=== PATIENT | female | born 1960 | race Caucasian/White ===

== ENCOUNTER → 2019-02-28 | Outpatient (CLI) | payer BC ==
--- NOTE | 2019-02-28 10:45 | Diagnostic Imaging Report ---
EXAMINATION: HAND 3+ VIEWS RIGHT INDICATION: Right hand pain COMPARISON: None FINDINGS: No acute fracture or dislocation. Alignment is anatomic. The soft tissues appear unremarkable. No substantial degenerative changes. IMPRESSION: No acute osseous injury. Signed by: Fern Lawton MD on 02/28/2019 10:42 AM
== END ==
LOC: RAD 09:16
PROVIDERS: ATTEND Internal Medicine
DX: M79.641 Pain in right hand (principal)

== ENCOUNTER → 2019-03-08 | Outpatient (CLI) | payer BC ==
--- NOTE | 2019-03-08 14:34 | Diagnostic Imaging Report ---
CT of the chest, without contrast, 03/08/2019. History: History of smoking and nodules. Comparison: None available. Technique: Multidetector CT scanning of the chest was performed from the level of the apices to the upper abdomen without contrast. Coronal and sagittal multiplanar reformations were obtained. RADIATION DOSE: Total DLP: 224 mGy*cm Dose modulation, iterative reconstruction, and/or weight based adjustment of the mA/kV was utilized to reduce the radiation dose to as low as reasonably achievable. Discussion: Evaluation is limited without IV contrast. Chest: The heart, aorta, and pulmonary vessels are normal in size. There is calcification of the coronary arteries. The thyroid is unremarkable. There is no gross evidence of adenopathy. A 7 mm pleural-based noncalcified nodule is present posteriorly in the right upper lobe, image 34. A 3 mm nodule is also noted anteriorly in the right upper lobe, image 36. There is mild bilateral centrilobular emphysema. Scattered linear opacities are present bilaterally. There is no evidence of consolidation or pleural effusion. Limited evaluation of the upper abdomen shows normal adrenal glands. A 2.5 cm simple cyst is noted in the right kidney. Bones and soft tissues: No acute abnormality. Mild degenerative changes are noted in the thoracic spine. IMPRESSION: 7 mm right upper lobe pulmonary nodule may be followed with repeat CT in 6-12 months. Mild emphysema is also noted. Signed by: Kyaw Gandhi on 03/08/2019 2:31 PM
== END ==
LOC: MAMMO 08:49
PROVIDERS: ATTEND Internal Medicine
DX: Z12.31 Encounter for screening mammogram for malignant neoplasm of breast (principal); Z12.2 Encounter for screening for malignant neoplasm of respiratory organs; Z87.891 Personal history of nicotine dependence
CPT/HCPCS: 71250; 77067